=== PATIENT | male | born 1985 | race Caucasian/White ===

== ENCOUNTER 2018-12-24 14:21 | Emergency (ER) | payer BC ==
[~2018-12-24] VITALS: Ht 182.9 cm; Wt 104.3 kg
[2018-12-24 15:31] LABS: HEMATOCRIT 44.6 % (42.0-52.0); HEMOGLOBIN 15.3 gm/dL (14.0-18.0); MCH 30.1 pg (26.0-34.0); MCHC 34.2 g/dL (28.0-37.0); MCV 87.9 fL (80.0-100.0); RBC 5.08 mil/uL (4.50-6.00); RDW 13.1 % (10.5-14.5); WBC 9.4 thou/uL (4.0-11.0)
[2018-12-24 15:38] LABS: CALCIUM 9.4 mg/dL (8.5-10.1); CREATININE 1.1 mg/dL (0.7-1.3); POTASSIUM 4.1 mmol/L (3.5-5.1)
[2018-12-24] MEDS ORDERED: ATIVAN0.5 MG PO (16:37)
[2018-12-24 18:08] VITALS: BP 126/75
--- NOTE | 2018-12-26 19:19 | EKG ---
[place] [address] [facility] [place] [address] ELECTROCARDIOGRAM REPORT Name: CRYSTAL IBRAHIM Room #: DEP Toma#: [id number] ������������������ Admission: 12/24/18 ������������������ Attend Phys: Discharge: 12/24/18 ������������������ Date of : 89 Report #: [id number] ����������������������������������������������������������������� [id number] THIS REPORT FOR: //name// [facility] ED Test Date: 2018-12-24 Test Time: 14:50:42 Pat Name: CRYSTAL IBRAHIM Department: Room: Gender: M Line Therapist: OCTAVIO : 1985 Requested By: Vesna Canela Order Number: [id number] MD: Dell Guillermo Measurements Intervals [place] Rate: 67 P: 1 NC: 152 QRS: -3 QRSD: 93 T: 30 QT: 397 QTc: 419 Interpretive Statements Sinus rhythm Baseline wander No previous ECG available for comparison Electronically Signed On 12-26-2018 19:19:22 COMPO CASTER by Dell Guillermo [email or web address] ��������������������������������������������� <ELECTRONICALLY SIGNED> ���������������������������������������� By: Dell Guillermo MD ��������������������������������������������� 12/26/18 1919 1450 1450 Dell Guillermo MD /EPI
== END 2018-12-24 18:00 | disposition home or self-care (01) ==
LOC: ER 14:21
PROVIDERS: Physician Assistant
DX: R07.89 Other chest pain (principal); F41.9 Anxiety disorder, unspecified; Z87.891 Personal history of nicotine dependence

== ENCOUNTER → 2021-06-11 | Outpatient (CLI) | payer OTHER ==
[~2021-06-11] MED LIST: ATIVAN0.5 MG PO
== END ==
LOC: CAT 08:59
PROVIDERS: ATTEND Family Medicine
DX: Z13.6 Encounter for screening for cardiovascular disorders (principal); E78.00 Pure hypercholesterolemia, unspecified; I25.10 Atherosclerotic heart disease of native coronary artery without angina pectoris